=== PATIENT | male | born 1995 | race African-American/Black ===

== ENCOUNTER 2016-10-02 23:09 | Emergency (ER) | payer OTHER ==
[2016-10-02 23:27] VITALS: BP 126/76
[2016-10-02] MEDS ORDERED: MOTRIN PO ONE (23:46)
--- NOTE | 2016-10-02 23:49 | PROVIDER DOCUMENTATION ---
HPI-Abdominal Pain/GI Problem <Luis Bejarano - Last Filed: 10/02/16 23:47> - General Source: patient - History of Present Illness-ABD Abdominal Pain Onset Location: reports: RLQ, LLQ Pain Radiation: reports: no radiation Quality of Pain: reports: aching Severity in ED: reports: mild Onset/Duration: reports: other (2 weeks) Timing: reports: still present Modifying Factors: worse with: exercise Bruising or Bleeding Gums?: No Similar Symptoms Previously?: No Recently seen or treated by another doctor?: No <Maira Lopez - Last Filed: 10/03/16 00:06> - General Chief Complaint: Abdominal Pain Stated Complaint: ABD PAIN Time Seen by Provider: 10/02/16 23:36 Allergies/Adverse Reactions: Patient Allergies Allergy/AdvReac Type Severity Reaction Status Date / Time No Known Allergies Allergy Verified 11/19/12 23:17 - History of Present Illness-ABD Nature of Presenting Problems: 21 year old M presents to the ED with a cc of lower ABD pain x2 weeks. Pt states that pain comes on with crunch exercises. Pt states that he has also had a decreased appetite. Pt denies nausea, vomiting, and diarrhea. (Maira Lopez) Review of Systems - Adult - REVIEW OF SYSTEMS - ADULT Constitutional: denies: chills, fever Eyes: reports: no symptoms reported Ears, Nose, Mouth & Throat: reports: no symptoms reported Cardiovascular: denies: chest pain, palpitations Respiratory: denies: cough, shortness of breath Gastrointestinal: reports: abdominal pain. denies: nausea, vomiting Genitourinary: denies: dysuria, hematuria Musculoskeletal: reports: no symptoms reported Integumentary: reports: no symptoms reported Neurological: reports: no symptoms reported Psychiatric: reports: no symptoms reported Endocrine: reports: no symptoms reported Hematologic/Lymphatic: reports: no symptoms reported Allergic/Immunologic: reports: no symptoms reported All Other Systems: Reviewed and Negative <Maira Lopez - Last Filed: 10/03/16 00:06> Past History - Adult - PAST MEDICAL HISTORY-ADULT Cardiovascular: reports: CHF. denies: A-Fib Respiratory: reports: asthma - IMMUNIZATION STATUS Childhood Immunizations: UTD - FAMILY HISTORY Family History: reviewed, not pertinent <Luis Bejarano - Last Filed: 10/02/16 23:47> - PAST MEDICAL HISTORY-ADULT Review of Records: reports: Nursing Assessment Review, Medications Reviewed Major Childhood Illnesses: reports: denies history Musculoskeletal: reports: orthopedic injury - PRIOR SURGERIES/PROCEDURES Surgical/Procedure History: reports: appendectomy, tonsillectomy - IMMUNIZATION STATUS Childhood Immunizations: See Nurse Assessment Flu Vaccine: See Nurse Assessment - SOCIAL HISTORY Smoking: non-smoker Substance Use: none/never Alcohol Use Frequency: never <Maira Lopez - Last Filed: 10/03/16 00:06> Physical Exam-General - PHYSICAL EXAM-ADULT Initial Vital Signs Reviewed: Yes - CONSTITUTIONAL General Appearance: appears well, alert, no apparent distress - RESPIRATORY Respiratory: chest non-tender, lungs clear, normal breath sounds - CARDIOVASCULAR Cardiovascular: normal peripheral pulses, regular rate, rhythm, no edema - GASTROINTESTINAL (ABDOMEN) Abdominal Exam: normal bowel sounds, non tender, soft, other (pain with sit up) - GENITOURINARY Male Genitalia: normal genitalia, no hernia. negative: scrotal swelling, urethral discharge, inguinal tenderness, testicular tenderness - MUSCULOSKELETAL Extremity: normal inspection - SKIN Integumentary: normal color, normal turgor, warm/dry - PSYCHIATRIC Psych/Mental Status: normal mood/affect, normal thought content, normal thought process, oriented x 3 <Maira Lopez - Last Filed: 10/03/16 00:06> Progress <Luis Bejarano - Last Filed: 10/02/16 23:47> <Maira Lopez - Last Filed: 10/03/16 00:06> - PLAN OF CARE/RESULTS Progress/Plan/Lab Results: Orders Category Date Time Status Ibuprofen [Motrin] Med 10/02/16 23:46 Discontinued 800 mg PO NOW ONE Vital Signs - 24 hr 10/02/16 23:22 Temperature 98.2 F Pulse Rate 50 L Respiratory 18 Rate Blood Pressure 126/76 O2 Sat by Pulse 100 Oximetry Pt given results and will be d/c home w/ rx to follow up with PCP. Pt verbally understood instructions. PT remained clinically stable throughout the course of the ED stay and will return if symptoms worsen. (Maira Lopez) Departure - Departure Time of Disposition Order: 23:47 Certified Medical Emergency: Emergent <Luis Bejarano - Last Filed: 10/02/16 23:47> <Maira Lopez - Last Filed: 10/03/16 00:06> - Departure DIAGNOSIS: Abdominal muscle strain Qualifiers: Encounter type: initial encounter Qualified Code(s): S39.011A - Strain of muscle, fascia and tendon of abdomen, initial encounter Disposition: HOME 01 Condition: Good Additional Instructions: ED Follow Up Instructions: You have been treated by a care provider in the Emergency Department. These instructions are being provided to you so you can have an understanding of how to care for yourself upon discharge. Upon discharge from the Emergency Department, you are responsible for making arrangements for follow-up care by a physician of your choice. Take all prescribed medications as directed. Return to the Emergency Department immediately for any new or worsening symptoms. You may call the Physician Referral phone number at [phone] to obtain a list of Physicians who are taking new patients. Prescriptions: Ibuprofen [Motrin] 800 mg PO Q8H PRN PRN #30 tablet PRN Reason: Pain Referrals: None,PCP [Primary Care Provider] - Forms: Return to School/Parent Work Instructions: Ibuprofen tablets and capsules, Muscle Strain, [id number] Attestation - Scribe Verification/Attestation Scribe:: Maira Lopez Acting as Scribe for:: Luis Bejarano Scribe documention review:: This chart was documented by a scribe and accurately reflects the service the provider performed and the decisions made by the provider. <Maira Lopez - Last Filed: 10/03/16 00:06> Physician Attestation - Physician Attestation I, the provider, attest to the following statement:: Luis Bejarano Physician documentation Attestation:: This documentation recorded by the scribe accurately reflects the service I personally performed and the decisions made by me. <Maira Lopez - Last Filed: 10/03/16 00:06>
== END 2016-10-03 00:23 | disposition home or self-care (01) ==
LOC: P.ED 23:09
DX: S39.011A Strain of muscle, fascia and tendon of abdomen, initial encounter (principal); R10.31 Right lower quadrant pain; R10.32 Left lower quadrant pain
CPT/HCPCS: 99282